=== PATIENT | female | born 1960 | race Caucasian/White ===

== ENCOUNTER 2021-03-01 06:00 | Outpatient (RCR) | payer OTHER, MEDICARE, MEDICAID, SELFPAY | END 2021-03-02 23:59 | disposition home or self-care (01) | LOC: MPT 06:00 | PROVIDERS: PCP Family Medicine; Referring Provider Nurse Practitioner Family; Visit Provider Nurse Practitioner Family | DX: S13.4XXD Sprain of ligaments of cervical spine, subsequent encounter (principal); X58.XXXD Exposure to other specified factors, subsequent encounter | CPT/HCPCS: 97110; 97162 ==

== ENCOUNTER → 2021-07-30 14:19 | Outpatient (BNVA) | payer MEDICARE, MEDICAID, SELFPAY | PROVIDERS: PCP Family Medicine; Visit Provider Emergency Medicine | DX: S42.211A Unspecified displaced fracture of surgical neck of right humerus, initial encounter for closed fracture (principal); W19.XXXA Unspecified fall, initial encounter | CPT/HCPCS: 73020 ==

== ENCOUNTER 2021-07-30 16:29 | Emergency (ER) | payer MEDICARE, MEDICAID, SELFPAY ==
[2021-07-30 16:39] VITALS: BP 144/80; PULSE 83; RESP 15; TEMP 36.4; O2SAT 97; BMI 25.0
[2021-07-30 16:50] VITALS: BP 139/64; PULSE 89; RESP 18; TEMP 36.4; O2SAT 95; O2SAT 96
--- NOTE | 2021-07-30 17:22 | W.ED.GENADLT ---
HPI - General Adult General: Chief complaint: Fall Stated complaint: Fell on R shoulder, clinic said its broken Time Seen by Provider: 07/30/21 16:58 History of Present Illness: Patient is a 61-year-old female who presents emergency room with concerns for possible right shoulder fracture. Patient was seen earlier today at urgent care after an episode of fall which occurred this morning. Patient had an x-ray that was performed which showed humerus head fracture. Was placed in a sling and then was told to come to the emergency room. On arrival, patient denies any other injuries associated with the fall. Patient denies any anticoagulation use. Patient has no associated chest pain, shortness breath palpitation lightheadedness prior to fall. Patient was feeding her chicken when she slipped and fell. Onset: 9am Duration: 8 hrs Location:home Severity:moderate Associated symptoms: Deny chest pain, dyspnea, nausea, rash, palpitations or vomiting Review of Systems Const: Denies: fever(s) or chills Eyes: Denies: change in vision ENMT: Denies: mouth pain Card: Denies: chest pain or palpitations Resp: Denies: dyspnea or non-productive cough GI: Denies: abdominal pain, nausea, vomiting or diarrhea : Denies: dysuria Musc: Reports: extremity pain (+R shoulder pain) Skin/Breast: Denies: rash or new lesions Neuro: Denies: weakness in extremities Psych: Reports: other (Normal mood) Kyrie/Lymph: Denies: easy bruising PFS ED PFSH: Medical History (Updated 07/30/21 @ 17:27 by Zelda Raymond MD) Humeral head fracture No active medical problems Social History (Updated 07/30/21 @ 17:24 by Zelda Raymond MD) Smoking and tobacco status: never smoked Alcohol intake: never Substance/Drug Use: never Physical Exam Const: COMMON NORMALS: alert HENMT: COMMON NORMALS: atraumatic HEAD & SCALP: atraumatic MOUTH: moist mucous membranes not abnormal Eye: COMMON NORMALS: EOMs intact bilaterally and conjunctivae normal CONJUNCTIVA: Yes conjunctivae normal Neck/C-Spine: COMMON NORMALS: full ROM and supple Resp: COMMON NORMALS: normal respiratory effort and clear to auscultation bilaterally AUSCULTATION: clear to auscultation bilaterally Cardio: COMMON NORMALS: regular rate RATE: regular rate GI: COMMON NORMALS: Soft to palpation and non-tender PALPATION: Yes Soft to palpation Extremity: NARRATIVE EXTREMITY EXAM: + Decreased range of motion of the right shoulder, moderate tenderness to palpation to the right shoulder, R humerus compartments non tense Elbow flexion/extension = 5/5, Hand ROM and grasp: 5/5 Sensory: Equal and Intact to LT over all regions of upper arm, forearm, hands Vascular: 2+ Radial pulses b/l Neuro: SENSORIUM/ORIENTATION: Yes alert MOTOR EXAM: No Abnormal motor strength present and Other motor observations present (no focal motor deficits) Psych: COMMON NORMALS: speech normal SPEECH: Yes normal speech MOOD & AFFECT: Yes euthymic mood Procedures Nerve Block Nerve Block 1: Time out performed: Yes Local Anesthetic: lidocaine 1%, bupivacaine 0.5%, with epi and other anesthetic (kenalog) Amount of anesthesia used (mL): 10 Side: right Nerve Blocks: other (supraclavicular nerve block) Procedure Successful: Yes Patient Tolerated Procedure: well Complications: none Additional Comments: Timeout was performed prior to the procedure. Risks discussed with patient extensively with patient of the Supraclavicular block occluding risk for infection, vascular injury, LAST syndrome, and motor deficit. 4 cc of saline was mixed with 6 cc of 50/50 2% lidocaine w/ epi and 0.5% bupivacaine w/o epi. Right shoulder was cleaned with chlorhexidine preps x2. Sterile gloves were donned and sterile ultrasound probe cover was used. The supraclavicular nerve bundle was identified followed by clavicle. Under ultrasound guidance, 8 cc mixed solution was sterilely injected underneath the obturator tendon. Patient tolerated the patient procedure without any difficulty. Patient achieved adequate anesthesia with technique. Course Vital Signs: Vital signs: Vital Signs Temperature 98.1 F 07/30/21 18:10 Pulse Rate 72 07/30/21 18:06 Respiratory Rate 18 07/30/21 18:10 Blood Pressure 137/76 07/30/21 18:10 Pulse Oximetry 98 07/30/21 18:10 MDM - General Adult Medical Decision Making 61-year-old female presenting to the emergency room after an episode of fall which occurred this morning. No other associated injury. On exam, patient is decreased range of motion significant pain to palpation over the right shoulder. X-ray from earlier today showed humeral head fracture. Case was discussed with Dr. Giraldo with recommendation for sling and close outpatient follow in clinic nex week. Pain controlled with supraclavicular nerve block. No complications from the procedure. I have given patient follow up with our case management specialist to be seen by Dr. Matthews for R shoulder fracture. Patient aware of a call from our case management specialist to schedule for appointment(s) and verbalizes understanding of the importance of following up. Rx: Perocet, lidocaine patch, and menthol PRN pain Disposition: Discharge. Patient counseled regarding diagnostic impression, treatment plan. Patient given ED strict return precautions to return for continuation, worsening, or development of new symptoms. Instructed to f/u w/ PCP regarding symptoms today. Patient verbalized understanding. Discharge Plan Discharge Patient Disposition: Home Clinical Impression: Fracture of shoulder Prescriptions: New Percocet 5-325 mg tablet 1 tab PO Q8H PRN (Reason: pain) Qty: 9 0RF lidocaine 5 % adhesive patch,medicated 1 patch topical DAILY PRN (Reason: pain) 30 Days Qty: 30 0RF Rx Instructions: leave on most painful area for up to 12 hrs Biofreeze (menthol) 5 % gel 1 ea topical BID PRN (Reason: pain) 10 Days Qty: 1 0RF Rx Instructions: please give only menthol based formulation without NSAIDS/aspirin No Action gabapentin 600 mg tablet 1,200 mg PO BID 0RF glipizide 5 mg tablet 5 mg PO DAILY 0RF methocarbamol 750 mg tablet 750 mg PO TID Qty: 30 0RF Discharge Orders: Discharge ED (Routine); Ordered 07/30/21 Ordered By: Zelda Raymond Referrals: Craig Whitley, [Primary Care Provider] - Discharge Diet: Advance as tolerated Discharge Activity: Increase activity as tolerated Patient Instructions: Opioid Safety Activity Restrictions/Additional Instructions: Our case management specialist will have you follow-up with Dr. Matthews in the next few days. You would be expected to have a phone call with our case management specialist who will put you on the schedule. You can expect a call from us in the next 2-3 days. If you don't hear from us, call us back in the emergency room at [phone]. Come back to the emergency room have any new or concerning complaints or worsening pain Coding Level of Care Code ED Inspection And Testing Supervisor for g Fwd Exam Comprehensive
[2021-07-30 18:06] VITALS: BP 126/72; PULSE 72; RESP 20; TEMP 36.9
[2021-07-30 18:10] VITALS: BP 137/76; RESP 18; TEMP 36.7; O2SAT 98
--- NOTE | 2021-07-30 18:30 | PC.NURSE ---
Discharged to home. Sling placed to UE, pt reports her RUE is numb & has no pain. IId dc'd. Instr reviewed w pt & her friend. Questions answered. Safety measures reviewed r/t unable to feel RUE such as guarding from injury, keeping arm in sling until she has feeling in arm. Reviewed dc meds.
--- NOTE | 2021-07-31 09:31 | DCPLANNER ---
Addendum entered by Mary Peña 08/04/21 12:53: Patient had a follow up appointment scheduled for 08.02.[address] Giraldo at ortho - patient did attend appointment. Original Note: flow manager had message to schedule a followup appointment for patient with ortho. flow manager called the ortho clinic, spoke with Nesha, gave clinic patients information. flow manager was told that patients information would be printed and reviewed. Clinic will call patient with appointment information.
== END 2021-07-30 18:15 | disposition home or self-care (01) ==
PROVIDERS: Emergency Provider Emergency Medicine; PCP Family Medicine
DX: S42.294A Other nondisplaced fracture of upper end of right humerus, initial encounter for closed fracture (principal); Z79.84 Long term (current) use of oral hypoglycemic drugs; W19.XXXA Unspecified fall, initial encounter; S42.211A Unspecified displaced fracture of surgical neck of right humerus, initial encounter for closed fracture
CPT/HCPCS: 73020; 99283

== ENCOUNTER → 2021-08-02 15:24 | Outpatient (BNVA) | payer MEDICARE, MEDICAID, SELFPAY | PROVIDERS: PCP Family Medicine; Visit Provider Orthopaedic Surgery | DX: S42.293A Other displaced fracture of upper end of unspecified humerus, initial encounter for closed fracture (principal); W00.0XXA Fall on same level due to ice and snow, initial encounter | CPT/HCPCS: 73030 ==

== ENCOUNTER → 2021-08-30 11:16 | Outpatient (BNVA) | payer MEDICARE, MEDICAID, SELFPAY | PROVIDERS: PCP Family Medicine; Visit Provider Orthopaedic Surgery | DX: S42.211A Unspecified displaced fracture of surgical neck of right humerus, initial encounter for closed fracture (principal); S42.291A Other displaced fracture of upper end of right humerus, initial encounter for closed fracture; X58.XXXA Exposure to other specified factors, initial encounter | CPT/HCPCS: 73030 ==

== ENCOUNTER 2021-09-05 06:00 | Outpatient (RCR) | payer MEDICARE, MEDICAID, SELFPAY | END 2021-09-30 23:59 | disposition home or self-care (01) | LOC: MPT 06:00 | PROVIDERS: PCP Family Medicine; Referring Provider Orthopaedic Surgery; Visit Provider Orthopaedic Surgery | DX: S42.201D Unspecified fracture of upper end of right humerus, subsequent encounter for fracture with routine healing (principal); X58.XXXD Exposure to other specified factors, subsequent encounter | CPT/HCPCS: 97032; 97110; 97140; 97161; 97530; G0283 ==

== ENCOUNTER → 2021-09-20 10:34 | Outpatient (BNVA) | payer MEDICARE, MEDICAID, SELFPAY | PROVIDERS: PCP Family Medicine; Visit Provider Orthopaedic Surgery | DX: Z98.890 Other specified postprocedural states (principal); S42.201D Unspecified fracture of upper end of right humerus, subsequent encounter for fracture with routine healing; X58.XXXD Exposure to other specified factors, subsequent encounter; F17.210 Nicotine dependence, cigarettes, uncomplicated | CPT/HCPCS: 73030 ==

== ENCOUNTER 2021-10-01 06:00 | Outpatient (RCR) | payer MEDICARE, MEDICAID, SELFPAY | END 2021-10-31 23:59 | disposition home or self-care (01) | LOC: MPT 06:00 | PROVIDERS: PCP Family Medicine; Referring Provider Orthopaedic Surgery; Visit Provider Orthopaedic Surgery | DX: S42.201D Unspecified fracture of upper end of right humerus, subsequent encounter for fracture with routine healing (principal); X58.XXXD Exposure to other specified factors, subsequent encounter | CPT/HCPCS: 97110; 97140; G0283 ==

== ENCOUNTER → 2022-01-09 08:58 | Outpatient (BNVA) | payer MEDICARE, MEDICAID, SELFPAY | PROVIDERS: PCP Family Medicine; Visit Provider Nurse Practitioner Women's Health | DX: Z01.419 Encounter for gynecological examination (general) (routine) without abnormal findings (principal); Z11.3 Encounter for screening for infections with a predominantly sexual mode of transmission; A63.0 Anogenital (venereal) warts; N95.0 Postmenopausal bleeding | CPT/HCPCS: 86592; 86803; 87340; 87491; 87591; 87624; 87661; 87806 ==

== ENCOUNTER → 2022-02-19 14:51 | Outpatient (BNVA) | payer MEDICARE, MEDICAID, SELFPAY | PROVIDERS: PCP Family Medicine; Visit Provider Obstetrics & Gynecology | DX: N95.0 Postmenopausal bleeding (principal) | CPT/HCPCS: 76830 ==

== ENCOUNTER → 2022-02-21 14:39 | Outpatient (BNVA) | payer MEDICARE, MEDICAID, SELFPAY | PROVIDERS: PCP Family Medicine; Visit Provider Obstetrics & Gynecology | DX: A63.0 Anogenital (venereal) warts (principal) | CPT/HCPCS: 88304 ==

== ENCOUNTER → 2022-03-27 13:16 | Outpatient (BNVA) | payer MEDICARE, MEDICAID, SELFPAY | PROVIDERS: PCP Family Medicine; Visit Provider Orthopaedic Surgery | DX: R20.0 Anesthesia of skin (principal); R20.2 Paresthesia of skin | CPT/HCPCS: 99213 ==

== ENCOUNTER 2022-03-27 15:28 | Outpatient (CLI) | payer MEDICARE, MEDICAID, SELFPAY | END 2022-03-27 15:29 | disposition home or self-care (01) | LOC: SPT 15:29 | PROVIDERS: PCP Family Medicine; Visit Provider Orthopaedic Surgery | DX: Z46.89 Encounter for fitting and adjustment of other specified devices (principal); R20.0 Anesthesia of skin; R20.2 Paresthesia of skin | CPT/HCPCS: 97760; L3908 ==

== ENCOUNTER → 2022-03-30 13:28 | Outpatient (BNVA) | payer MEDICARE, MEDICAID, SELFPAY | PROVIDERS: PCP Family Medicine; Visit Provider Obstetrics & Gynecology | DX: R87.610 Atypical squamous cells of undetermined significance on cytologic smear of cervix (ASC-US) (principal); R87.810 Cervical high risk human papillomavirus (HPV) DNA test positive | CPT/HCPCS: 88305 ==

== ENCOUNTER → 2022-04-04 09:24 | Outpatient (BNVA) | payer MEDICARE, MEDICAID, SELFPAY | PROVIDERS: PCP Internal Medicine; Referring Provider Family Medicine; Visit Provider Nurse Practitioner | DX: E11.40 Type 2 diabetes mellitus with diabetic neuropathy, unspecified (principal); Z79.4 Long term (current) use of insulin | CPT/HCPCS: 99203 ==

== ENCOUNTER → 2022-04-25 08:49 | Outpatient (BNVA) | payer MEDICARE, MEDICAID, SELFPAY | PROVIDERS: PCP Internal Medicine; Referring Provider Orthopaedic Surgery; Visit Provider Specialist | DX: G56.03 Carpal tunnel syndrome, bilateral upper limbs (principal); G56.23 Lesion of ulnar nerve, bilateral upper limbs | CPT/HCPCS: 95910; 95913 ==

== ENCOUNTER → 2022-05-09 13:22 | Outpatient (BNVA) | payer MEDICARE, MEDICAID, SELFPAY | PROVIDERS: PCP Internal Medicine; Visit Provider Orthopaedic Surgery | DX: G56.03 Carpal tunnel syndrome, bilateral upper limbs (principal) | CPT/HCPCS: 99213 ==

== ENCOUNTER 2022-06-07 12:19 | Day surgery (SDC) | payer MEDICARE, MEDICAID, SELFPAY ==
[2022-06-06 11:17] VITALS: BMI 25.2
[2022-06-07] VITALS (8 sets, daily range): BP systolic 112–124; BP diastolic 67–81; PULSE 83–96; RESP 14–16; TEMP 36.1–36.7; O2SAT 95–100
[2022-06-07] MEDS: sodium chloride 0.9% 1,000 ML 30 ML IV (12:52)
[2022-06-07 12:54] LABS: Glucose Point of Care 121 mg/dL (70-110)
[2022-06-07 13:36] LABS: Anion Gap 16.7 (5-19); Blood Urea Nitrogen 12 mg/dL (8-23); Calcium 9.4 mg/dL (8.5-10.5); Carbon Dioxide 25 mmol/L (22-29); Chloride 101 mmol/L (98-107); Glucose 122 mg/dL (65-115); Osmolality Calculated 287 mOsm/kg (285-295); Potassium 4.7 mmol/L (3.5-5.1); Sodium 138 mmol/L (136-145)
--- NOTE | 2022-06-07 14:24 | PM.OP ---
Operative Report Date of procedure: June 07, 2022 Pre-op diagnosis: Preop Diagnosis Left Carpal tunnel and cubital tunnel syndrome Post-op diagnosis: same Post-op diagnosis: Same Procedure done: Left carpal tunnel release Pathology: none sent Surgeon: Mk Giraldo Anesthesia: General Estimated blood loss (mL): 2 Tourniquet time (min): 18 Findings: No masses or space-occupying lesions were seen within the carpal tunnel Condition: stable Disposition: PACU Procedure: Patient was taken to the operating room and anesthesia provided by the anesthesia service. She was prepped and draped with the arm exposed. A timeout was performed. A 3 cm long incision was made in line with the fourth ray from the distal edge of the carpal tunnel extending proximally. The subcutaneous fat and palmar fascia was divided with a scalpel blade. Under loupe magnification the ulnar neurovascular bundle was identified distally. A hemostat could be passed under the transverse carpal ligament allowing the distal 25% to be divided. A slotted guide was then passed beneath the transverse carpal ligament and the middle 50% divided. Blunt scissors were then passed over the guide freeing the proximal ligament. The tourniquet was deflated. Hemostasis provided with electrocautery. Wound edges were infiltrated with 10 cc of a half percent Marcaine solution. Skin edges were reapproximated with 3-0 Prolene. Sterile dressings were applied. The patient was taken to the recovery room in stable condition
--- NOTE | 2022-06-07 14:25 | P.HPUD_ITS ---
Surgery/Procedure H&P Update DATE OF PROCEDURE: June 07, 2022 DATE H&P PERFORMED: 05/09/22 H&P UPDATE INFORMATION: I have reviewed H&P completed within last 30 days PREOP DIAGNOSIS: Left Carpal tunnel and cubital tunnel syndrome PLANNED PROCEDURE: Operation Date: 06/07/22 13:50 Proposed Procedures p left carpal tunnel release and ulnar nerve decompression/ [id number] G56. 06,G56.23(Left) - Mk Giraldo MD s Ulna Nerve Decompression(Left) - Mk Giraldo MD
--- NOTE | 2022-06-07 14:46 | ANES.PREANE2 ---
Pre-Anesthetic Assessment Height/Weight: Height 1.57 m Weight 62.596 kg Temp Pulse Resp BP Pulse Ox O2 Del Method 97.5 F L 96 16 115/75 99 06/07/22 12:39 06/07/22 12:39 06/07/22 12:39 06/07/22 12:39 06/07/22 12:39 06/07/22 12:39 Preop Diagnosis: Left Carpal tunnel and cubital tunnel syndrome Operation Date: 06/07/22 13:50 Proposed Procedures p left carpal tunnel release and ulnar nerve decompression/ [id number] G56.06,G56.23(Left) - Mk Giraldo MD s Ulna Nerve Decompression(Left) - Mk Giraldo MD Familial anesthetic complications: none Was Beta Raul taken within 24 hours: N/A Was Clonidine taken within 24 hours: N/A Last intake: Intake Last Liquid Date 06/06/22 Last Liquid Time 20:30 Last Solid Date 06/06/22 Last Solid Time 20:30 Social Tobacco Exam alert, oriented x 3 and regular rate & rhythm Airway Submandibular: within normal limits Cervical ROM: within normal limits Mallampati: Class II Dentition: false Pulmonary Chronic Obstructive Pulmonary Disease Metabolic Diabetes Mellitus Neuropsych Neuropathy Anesthetic Plan ASA status: 3 Anesthesia: General Medications/Allergies Home Medications Medication Instructions Recorded Confirmed Last Taken Type gabapentin 600 mg tablet 1,200 mg PO BID 02/18/21 06/07/22 06/07/22 History fluoxetine 10 mg capsule 10 mg PO DAILY 02/21/22 06/07/22 06/06/22 History cock up splint #1 ea 03/27/22 05/09/22 Unknown Rx semaglutide 0.25 mg or 0.5 mg (2 0.25 mg SUBCUT .weekly 04/16/22 06/06/22 06/03/22 History mg/1.5 mL) subcutaneous pen injector (Ozempic) hydrocodone 5 mg-acetaminophen 325 1 tab PO Q4H #30 tabs 06/07/22 Unknown Rx mg tablet Allergies Allergy/AdvReac Type Severity Reaction Status Date / Time No Known Allergies Allergy Verified 06/07/22 12:36 Current Medications Generic Name Dose Route Start Last Admin Trade Name Freq PRN Reason Stop Dose Admin Sodium Chloride 1,000 mls @ 30 mls/hr 06/07/22 12:30 06/07/22 12:52 Sodium Chloride 0.9% IV 06/08/22 12:29 30 mls/hr .Q24H BUTCH Administration PFSH Anesthesia Medical History Diabetes Fracture of humerus, proximal, right, closed Neuropathy No pertinent past medical history neghx: htn,thyroid,dvt/pe PCP: Dr. Mariano-- Casimiro Gunn Peripheral neuropathy Surgical History History of appendectomy at age 22 History of lumpectomy of right breast (~2015) traumatic injury-- benign Hx of tonsillectomy as a child Family History Grandmother Diabetes Maternal Father Hypertension Denies family history of Colon cancer Ovarian cancer Heart disease Hypercholesteremia Breast cancer Uterine cancer Thyroid disease Stroke Social History Smoking and tobacco status: current every day smoker Data Anesthesia 06/07/22 12:55 BMP 06/07/22 12:55 Sodium 138 Potassium 4.7 Chloride 101 Carbon Dioxide 25 BUN 12 Creatinine 0.6 Glucose 122 H Calcium 9.4 Cardiac Studies: No Data to Display
[2022-06-07] MEDS: HYDROcodone-acetaminophen 5-325 mg Tablet 1 TAB PO (16:32)
--- NOTE | 2022-06-07 17:47 | ANE.PACU2 ---
Inpatient post-anesthesia follow up: Airway intact: Yes Vital signs: Temperature 98.0 F Pulse Rate 85 Respiratory Rate 16 Blood Pressure 122/78 Pulse Oximetry 96 Oxygen Delivery Me thod Room Air Oxygen Flow Rate 8 Fraction of Inspir ed Oxygen Hydration adequate: Yes Nausea and vomiting: No Pain level: 2 Mental status: Baseline
== END 2022-06-07 16:50 | disposition home or self-care (01) ==
PROVIDERS: Anesthesiology; PCP Internal Medicine; Visit Provider Orthopaedic Surgery
PROC: (CPT 64721; principal; 2022-06-07 13:40)
PROC: (CPT 64721; 2022-06-07 13:40)
DX: G56.02 Carpal tunnel syndrome, left upper limb (principal); G56.22 Lesion of ulnar nerve, left upper limb; J44.9 Chronic obstructive pulmonary disease, unspecified; E11.40 Type 2 diabetes mellitus with diabetic neuropathy, unspecified; F17.210 Nicotine dependence, cigarettes, uncomplicated; Z79.4 Long term (current) use of insulin
CPT/HCPCS: 64721; 36415; 36416; 80048; 82962; J2405; J2704; J3010; J7030

== ENCOUNTER → 2022-06-12 10:41 | Outpatient (BNVA) | payer MEDICARE, MEDICAID, SELFPAY | PROVIDERS: PCP Internal Medicine; Visit Provider Nurse Practitioner Family | DX: Z98.890 Other specified postprocedural states (principal) | CPT/HCPCS: 99024 ==

== ENCOUNTER → 2022-06-19 12:55 | Outpatient (BNVA) | payer MEDICARE, MEDICAID, SELFPAY | PROVIDERS: PCP Internal Medicine; Visit Provider Nurse Practitioner Family | DX: Z98.890 Other specified postprocedural states (principal) | CPT/HCPCS: 99024 ==

== ENCOUNTER 2022-10-01 06:00 | Outpatient (RCR) | payer MEDICARE, MEDICAID, SELFPAY | END 2022-10-31 23:59 | disposition home or self-care (01) | LOC: MOT 06:00 | PROVIDERS: Visit Provider Physical Medicine & Rehabilitation | DX: R20.0 Anesthesia of skin (principal); R20.2 Paresthesia of skin | CPT/HCPCS: 97110; 97112; 97140; 97166 ==

== ENCOUNTER 2022-10-08 06:00 | Outpatient (RCR) | payer MEDICARE, MEDICAID, SELFPAY | END 2022-10-31 23:59 | disposition home or self-care (01) | LOC: MPT 06:00 | PROVIDERS: Visit Provider Physical Medicine & Rehabilitation | DX: G95.89 Other specified diseases of spinal cord (principal) | CPT/HCPCS: 97110; 97116; 97140; 97162 ==

== ENCOUNTER 2022-11-01 06:00 | Outpatient (RCR) | payer MEDICARE, MEDICAID, SELFPAY | END 2022-11-30 23:59 | disposition home or self-care (01) | LOC: MOT 06:00 | PROVIDERS: Visit Provider Physical Medicine & Rehabilitation | DX: G95.89 Other specified diseases of spinal cord (principal) | CPT/HCPCS: 97110; 97112; 97140 ==

== ENCOUNTER 2022-11-01 06:00 | Outpatient (RCR) | payer MEDICARE, MEDICAID, SELFPAY | END 2022-11-30 23:59 | disposition home or self-care (01) | LOC: MPT 06:00 | PROVIDERS: Visit Provider Physical Medicine & Rehabilitation | DX: G95.89 Other specified diseases of spinal cord (principal) | CPT/HCPCS: 97110; 97112; 97140 ==

== ENCOUNTER 2022-12-01 06:00 | Outpatient (RCR) | payer MEDICARE, MEDICAID, SELFPAY | END 2022-12-31 23:59 | disposition home or self-care (01) | LOC: MPT 06:00 | PROVIDERS: Visit Provider Physical Medicine & Rehabilitation | DX: G95.9 Disease of spinal cord, unspecified (principal) | CPT/HCPCS: 97110; 97112; 97140 ==

== ENCOUNTER 2022-12-01 06:00 | Outpatient (RCR) | payer MEDICARE, MEDICAID, SELFPAY | END 2022-12-31 23:59 | disposition home or self-care (01) | LOC: MOT 06:00 | PROVIDERS: Visit Provider Physical Medicine & Rehabilitation | DX: R20.0 Anesthesia of skin (principal); R20.2 Paresthesia of skin | CPT/HCPCS: 97110; 97112 ==

== ENCOUNTER → 2023-08-15 15:47 | Outpatient (BNVA) | payer MEDICARE, MEDICAID, SELFPAY | PROVIDERS: PCP Nurse Practitioner; Visit Provider Obstetrics & Gynecology | DX: Z12.4 Encounter for screening for malignant neoplasm of cervix (principal) | CPT/HCPCS: 87624 ==

== ENCOUNTER → 2023-09-11 11:33 | Outpatient (BNVA) | payer MEDICARE, MEDICAID, SELFPAY | PROVIDERS: PCP Nurse Practitioner; Visit Provider Nurse Practitioner | DX: E11.40 Type 2 diabetes mellitus with diabetic neuropathy, unspecified (principal) | CPT/HCPCS: 83036 ==

== ENCOUNTER → 2024-01-06 14:42 | Outpatient (BNVA) | payer MEDICARE, SELFPAY | PROVIDERS: PCP Nurse Practitioner; Visit Provider Nurse Practitioner | DX: R82.998 Other abnormal findings in urine (principal); E11.40 Type 2 diabetes mellitus with diabetic neuropathy, unspecified | CPT/HCPCS: 81000; 83036; 87086 ==

== ENCOUNTER → 2024-02-07 13:07 | Outpatient (BNVA) | payer MEDICARE, SELFPAY | PROVIDERS: PCP Nurse Practitioner; Visit Provider Nurse Practitioner | DX: R52 Pain, unspecified (principal) | CPT/HCPCS: 87426 ==

== ENCOUNTER → 2024-04-23 14:17 | Outpatient (BNVA) | payer MEDICARE, SELFPAY | PROVIDERS: PCP Nurse Practitioner; Visit Provider Nurse Practitioner | DX: E11.40 Type 2 diabetes mellitus with diabetic neuropathy, unspecified (principal) | CPT/HCPCS: 80053; 83036 ==

== ENCOUNTER → 2024-07-28 13:24 | Outpatient (BNVA) | payer MEDICARE, SELFPAY | PROVIDERS: PCP Nurse Practitioner; Visit Provider Nurse Practitioner | DX: E11.40 Type 2 diabetes mellitus with diabetic neuropathy, unspecified (principal); G62.9 Polyneuropathy, unspecified; F32.A Depression, unspecified | CPT/HCPCS: 83036 ==

== ENCOUNTER → 2024-10-27 13:38 | Outpatient (BNVA) | payer MEDICARE, SELFPAY | PROVIDERS: PCP Nurse Practitioner; Visit Provider Nurse Practitioner | DX: E11.40 Type 2 diabetes mellitus with diabetic neuropathy, unspecified (principal) | CPT/HCPCS: 80053; 80061; 83036 ==

== ENCOUNTER → 2025-01-26 14:41 | Outpatient (BNVA) | payer MEDICARE, SELFPAY | PROVIDERS: PCP Nurse Practitioner; Visit Provider Nurse Practitioner | DX: E11.40 Type 2 diabetes mellitus with diabetic neuropathy, unspecified (principal); M25.50 Pain in unspecified joint | CPT/HCPCS: 81000; 83036; 84550; 85651; 86038; 86140; 86431 ==

== ENCOUNTER → 2025-03-03 08:57 | Outpatient (BNVA) | payer MEDICARE, SELFPAY | PROVIDERS: PCP Nurse Practitioner; Visit Provider Nurse Practitioner | DX: M25.50 Pain in unspecified joint (principal) | CPT/HCPCS: 85651; 86140 ==